=== PATIENT | female | born 1945 | race Caucasian/White ===

== ENCOUNTER → 2017-07-21 | Outpatient (CLI) | payer MEDICARE ==
[~2017-07-21] MED LIST: CHOL2000 PO; ERGO500017 PO; MULT-658 PO; RAMI10CA PO
[2017-07-21 15:51] LABS: BASOPHILS # (AUTO) 0.04 x10^3/uL (0-0.1); BASOPHILS % (AUTO) 1 % (0-1); EOSINOPHILS # (AUTO) 0.24 x10^3/uL (0-0.4); EOSINOPHILS % (AUTO) 3 % (1-7); LYMPHOCYTES # (AUTO) 2.06 x10^3/uL (1-3.4); LYMPHOCYTES % (AUTO) 29 % (22-44); MD NO; MEAN CORPUSCULAR HEMOGLOBIN 30.2 pg (27.0-34.8); MEAN CORPUSCULAR HGB CONC 33.8 g/dL (32.4-35.8); MEAN CORPUSCULAR VOLUME 89.3 fL (80-100); MEAN PLATELET VOLUME 8.1 fL (7.4-10.4); MONOCYTES # (AUTO) 0.49 x10^3/uL (0.2-0.8); MONOCYTES % (AUTO) 7 % (2-9); NEUTROPHILS # (AUTO) 4.18 x10^3/uL (1.8-6.8); NEUTROPHILS % (AUTO) 60 % (42-75); PLATELET COUNT 278 x10^3/uL (130-400); RED BLOOD COUNT 5.37 x10^6/uL (3.82-5.3); RED CELL DISTRIBUTION WIDTH 13.5 % (9.6-15.2)
[2017-07-21 16:03] LABS: ALBUMIN 3.9 g/dL (3.4-5.0); ANION GAP 8 mmol/L (5-15); CALCIUM 9.2 mg/dL (8.5-10.1); CHLORIDE 109 mmol/L (98-107)
[2017-07-21 16:06] LABS: ALANINE AMINOTRANSFERASE 21 U/L (12-78); ALKALINE PHOSPHATASE 124 U/L (45-117); BILIRUBIN,TOTAL 0.5 mg/dL (0.2-1.0); CREATININE 0.58 mg/dL (0.55-1.02); TOTAL PROTEIN 7.6 g/dL (6.4-8.2)
== END | disposition home or self-care (01) ==
LOC: STAR 14:45
PROVIDERS: ATTEND Otolaryngology Facial Plastic Surgery
DX: Z01.818 Encounter for other preprocedural examination (principal); I51.7 Cardiomegaly; I25.2 Old myocardial infarction; J34.2 Deviated nasal septum; J34.3 Hypertrophy of nasal turbinates
CPT/HCPCS: 36415; 71046; 80053; 85025; 93005

== ENCOUNTER 2017-07-27 05:55 | Day surgery (SDC) | payer MEDICARE ==
[~2017-07-27] VITALS: Ht 165.1 cm; Wt 80.2 kg
[2017-07-27] MEDS ORDERED: OXYMETAZOLINE NASAL SPRAY 0.05%, 15ML ONE (06:16)
[2017-07-27] MEDS ORDERED: COCAINE TOPICAL SOLN 4%, 4ML ONE (06:16)
[2017-07-27] MEDS ORDERED: MUPIROCIN OINT 2%, 22GM ONE (06:16)
[2017-07-27] MEDS ORDERED: LIDOCAINE 1%, 20ML ONE (06:17)
[2017-07-27] MEDS ORDERED: EPINEPHRINE 1 MG/ML, 1ML ONE (06:17)
[2017-07-27 07:01] VITALS: BP 160/86
[2017-07-27] MEDS ORDERED: FENTANYL PF 250 MCG/5ML ONE (07:10)
[2017-07-27] MEDS ORDERED: MIDAZOLAM 1 MG/ML, 2ML ONE (07:10)
[2017-07-27] MEDS ORDERED: LIDOCAINE-MPF 2% ,5ML ONE (07:11)
[2017-07-27] MEDS ORDERED: PROPOFOL 10 MG/ML, 20ML ONE (07:11)
[2017-07-27] MEDS ORDERED: ROCURONIUM 10 MG/ML,10ML ONE (07:12)
[2017-07-27] MEDS ORDERED: CEFAZOLIN 1,000 MG ONE ×2 (07:14)
[2017-07-27] MEDS ORDERED: SODIUM CHLORIDE 0.9% PF 10ML ONE (07:14)
[2017-07-27] MEDS ORDERED: LACTATED RINGERS 1,000 ML IV SCH (07:20)
[2017-07-27] MEDS ORDERED: GLYCOPYRROLATE 0.2MG/1ML, 5ML ONE (07:31)
[2017-07-27] MEDS ORDERED: NEOSTIGMINE 1 MG/ML, 10ML ONE (07:31)
[2017-07-27] MEDS ORDERED: DEXAMETHASONE 4 MG/ML, 1ML ONE ×2 (07:41)
[2017-07-27] MEDS ORDERED: ONDANSETRON 2MG/ML, 2ML ONE ×2 (08:28)
[2017-07-27] MEDS ORDERED: ACETAMINOPHEN 325 MG TABLET PO PRN (08:30)
[2017-07-27] MEDS ORDERED: MEPERIDINE/PF 25MG/0.5ML IVPush PRN (08:30)
[2017-07-27] MEDS ORDERED: ONDANSETRON 2MG/ML, 2ML IVPush PRN (08:30)
[2017-07-27] MEDS ORDERED: hydrALAzine 20 MG/ML, 1ML IV PRN (08:30)
[2017-07-27] MEDS ORDERED: FENTANYL PF 100 MCG/2ML IV PRN (08:30)
[2017-07-27] MEDS ORDERED: OXYcodone 5 MG/5 ML ORAL.SOL UDC PO PRN (08:30)
[2017-07-27] MEDS ORDERED: LABETALOL 5MG/ML, 20ML IV PRN (08:30)
[2017-07-27] MEDS ORDERED: PROMETHAZINE 12.5 MG SUPP PR PRN (08:30)
[2017-07-27] MEDS ORDERED: morphine SULFATE 10 MG/ML, 1ML IV PRN (08:30)
[2017-07-27] MEDS ORDERED: OXYcodone 5 MG/5 ML ORAL.SOL UDC ONE (08:52)
[2017-07-27] MEDS ORDERED: ACETAMINOPHEN 650 MG/20.3 ML UDC ONE (08:52)
== END 2017-07-27 13:51 ==
LOC: OUT 05:55
PROVIDERS: ATTEND Otolaryngology Facial Plastic Surgery
DX: J34.2 Deviated nasal septum (principal); J34.3 Hypertrophy of nasal turbinates
CPT/HCPCS: 30140; 30520; J0171; J0690; J1100; J2250; J2405; J2704; J2710; J3010; J3490